=== PATIENT | female | born 1975 | race Caucasian/White ===

== ENCOUNTER 2020-11-10 10:30 | Emergency (ER) | payer OTHER, SELFPAY ==
--- NOTE | 2020-11-10 10:33 | ED.URI ---
HPI - URI/Sore Throat General Chief Complaint: Upper Respiratory Infection Stated Complaint: chest congestion/drainage/sore throat/sinus issues Time Seen by Provider: 11/10/20 10:33 Source: patient and RN notes reviewed History of Present Illness HPI Narrative: Patient is a 44-year-old female who presents the urgent care with complaints of cough, sore throat, postnasal drainage and chest congestion. Patient states that she has been taking DayQuil, NyQuil, Ayanna and Mucinex without much relief. Denies of fever, chills, nausea, vomiting. Denies of any known exposure to Covid. States that her son was recently sick for couple days but her whole household has seasonal allergies . Patient has had her Covid vaccine. No other acute complaints. No acute distress noted. Patient aware of the plan of care. Some parts of this dictation were generated by voice recognition software and may contain typographical and/or grammatical inaccuracies. Related Data Home Medications Medication Instructions Recorded Confirmed fexofenadine-pseudoephedrine 1 tablet PO Q12H PRN 11/10/20 11/10/20 [Ayanna-D 12 Hour] Allergies Allergy/AdvReac Type Severity Reaction Status Date / Time latex Allergy Rash Verified 11/10/20 10:43 Review of Systems Review of Systems: CONSTITUTIONAL: Denies fever, chills, or sweats. EYES: Denies visual changes, redness, or discharge. ENT: Reports of congestion, sore throat and postnasal drainage CARDIOVASCULAR: Denies chest pain, palpitations, or edema. RESPIRATORY: Reports of cough with intermittent dyspnea GASTROINTESTINAL: Denies abdominal pain, nausea, vomiting, or diarrhea. GENITOURINARY: Denies dysuria or hematuria. SKIN: Denies rash or itching. MUSCULOSKELETAL: Denies back pain, joint pain, or myalgia. NEUROLOGIC: Reports of headaches All other systems reviewed are negative, except as documented in HPI. PMFSH Comments At the time of my signature, I reviewed and agree with the nursing past medical, surgical, social, and family history. There is no relevant family history pertinent to the patient complaint. Exam Narrative: GENERAL: This is a well-nourished, well-developed patient, in no apparent distress. HEAD: normocephalic, atraumatic. EYES: PERRL. Sclera clear/white. Vision is grossly intact. EARS: External ears normal, auditory canals clear and without drainage, TMs normal without perforation. Hearing grossly intact. NOSE: External nose normal with no obvious nasal discharge, nares without redness, clear rhinorrhea. THROAT: Mucous membranes moist, moderate erythema noted posterior oropharynx with mild postnasal drainage NECK: Neck supple, non-tender without lymphadenopathy, masses or thyromegaly. CARDIOVASCULAR: Regular rate and rhythm without murmurs, gallops, or rubs. RESPIRATORY: Clear to auscultation. Breath sounds equal bilaterally. No wheezes, rales, or rhonchi. SKIN: warm, intact with no suspicious lesions or rash, good texture and turgor. NEURO: awake, alert, and oriented to person, place and time. There were no obvious focal neurologic abnormalities. EXTREMITIES: No clubbing, cyanosis, or edema. Course Vital Signs Vital signs: Vital Signs Temperature 98.5 F 11/10/20 10:45 Pulse Rate 98 11/10/20 10:45 Respiratory Rate 16 11/10/20 10:45 Blood Pressure 152/91 H 11/10/20 10:45 Pulse Oximetry 98 11/10/20 10:45 Temperature 98.5 F 11/10/20 10:45 Pulse Rate 98 11/10/20 10:45 Respiratory Rate 16 11/10/20 10:45 Blood Pressure 152/91 H 11/10/20 10:45 Pulse Oximetry 98 11/10/20 10:45 Reviewed-patient is informed that they may have pre-hypertension or hypertension based on a blood pressure reading in the department. I recommend the patient call the primary care provider listed on their discharge instructions or a physician of their choice this week to arrange follow-up for further evaluation of possible pre-hypertension or hypertension. MDM - URI/Sore Throat MDM N
[2020-11-10 10:45] VITALS: BP 152/91; PULSE 98; RESP 16; TEMP 36.9; O2SAT 98
[2020-11-12 19:00] LABS: SARS-CoV-2 RNA PCR Negative
== END 2020-11-10 11:02 | disposition home or self-care (01) ==
PROVIDERS: Emergency Provider Nurse Practitioner Family; PCP Registered Nurse
DX: J32.9 Chronic sinusitis, unspecified (principal); Z20.822 Contact with and (suspected) exposure to COVID-19
CPT/HCPCS: 99203; C9803; G0463; U0003; U0005

== ENCOUNTER 2022-01-24 23:33 | Emergency (ER) | payer OTHER, SELFPAY ==
--- NOTE | ~2022-01-24 | XR_ITS ---
EXAMINATION: XR chest 2V 01/25/2022 00:28 INDICATION: Dizziness, cough and shortness of breath PROCEDURE: 2 view chest COMPARISON: No prior studies for comparison. FINDINGS: The lungs are clear. The cardiomediastinal silhouette is within normal limits. There are no pleural effusions. There is no pneumothorax suspected. IMPRESSION: 1: NO ACUTE CARDIOPULMONARY DISEASE. Reviewed, dictated and finalized at location A. [facility]
[2022-01-24 23:38] VITALS: BP 155/106; PULSE 99; RESP 16; TEMP 36.9; O2SAT 99
[2022-01-25 00:25] LABS: Basophils Percent Auto 0.2 % (0.2-1.2); Eosinophils Percent Auto 0.1 % (0-4.4); Hematocrit 40.7 % (37.0-47.0); Hemoglobin 13.6 g/dL (12.0-15.0); Immature Granulocyte Absolute 0.07 K/mm3 (0.00-0.031); Immature Granulocyte Percent A 0.4 % (0-0.5); Lymphocytes Absolute Auto 1.62 K/mm3 (0.9-3.2); Lymphocytes Percent Auto 9.8 % (18.3-44.2); Mean Corpuscular HGB Conc 33.4 g/dl (32-36); Mean Corpuscular Hemoglobin 28.5 pg (26-34); Mean Corpuscular Volume 85.3 fl (80-100); Mean Platelet Volume 9.8 fl (7.4-10.4); Monocytes Absolute Auto 0.6 K/mm3 (0.1-0.6); Monocytes Percent Auto 3.7 % (2.6-8.5); Neutrophils Absolute Auto 14.2 K/mm3 (1.3-6.7); Neutrophils Percent Auto 85.8 % (45.5-73.1); Platelet Count Result 464 k/mm3 (150-375); Red Blood Count 4.77 M/mm3 (4.2-5.4); Red Cell Distribution Width 14.2 % (11.5-14.5); White Blood Count 16.6 K/mm3 (4.5-10.0)
[2022-01-25 00:35] LABS: Alanine Aminotransferase 26 U/L (6-35); Albumin Level 4.7 g/dL (3.5-5.1); Alkaline Phosphatase 64 U/L (38-126); Anion Gap 11 mmol/L (8-16); Aspartate Amino Transferase 29 U/L (14-36); Bilirubin,Total 0.4 mg/dL (0.2-1.3); Blood Urea Nitrogen 22 mg/dL (7-17); Calcium 8.8 mg/dL (8.4-10.2); Carbon Dioxide 23 mmol/L (22-30); Chloride 107 mmol/L (98-107); Estimated CRCL calculation 147 ml/min; Estimated Glomerular Filt Rate > 60; Glucose 157 mg/dL (65-110); INR 1.1; Potassium 4.1 mmol/L (3.4-5.0); Prothrombin Time 13.5 Seconds (11.1-14.7); Sodium 141 mmol/L (137-145)
[2022-01-25 00:36] LABS: Partial Thromboplastin Time 27.7 SECONDS (22.3-36.8)
[2022-01-25 00:45] VITALS: BP 140/92; PULSE 88; RESP 17; O2SAT 98
[2022-01-25] MEDS: methylPREDNISolone SOD SUCC 125 MG VIAL IV PUSH (00:52)
[2022-01-25] MEDS: FAMOTIDINE 20 MG/2 ML VIAL IV PUSH (00:52)
[2022-01-25] MEDS: diphenhydrAMINE HCl INJ 50 MG/ML VIAL 25 MG IV PUSH (00:52)
[2022-01-25 01:04] LABS: Influenza A QL RT-PCR Negative (Negative); Influenza B QL RT-PCR Negative (Negative); SARS-CoV-2 RNA PCR Negative
--- NOTE | 2022-01-25 02:18 | ED.GENADULT ---
HPI - General Adult General Chief complaint: Allergic Reaction Stated complaint: allergic reaction Time Seen by Provider: 01/24/22 23:37 Source: RN notes reviewed History of Present Illness HPI narrative: Patient presents emergency department from home for possible allergic reaction. Patient states approximate 45 minutes prior to arrival she began to feel like her throat was swelling. She states that with that she felt short of breath. She states that she had just drank a smoothie from [employer] she states she was recently started on a Medrol Dosepak as well as an antibiotic for pneumonia. She denies any fevers or chills she denies any chest pain abdominal pain nausea or vomiting. Related Data Home Medications Medication Instructions Recorded Confirmed fexofenadine 60 mg-pseudoephedrine 1 tablet PO Q12H PRN Congestion 11/10/20 11/10/20 ER 120 mg tablet,ext.release,12 hr (Ayanna-D 12 Hour) Allergies Allergy/AdvReac Type Severity Reaction Status Date / Time latex Allergy Rash Verified 01/24/22 23:33 Review of Systems Review of Systems: Gen.: Denies fevers or chills Eyes: Denies eye pain or visual change ENT: Reports congestion and sore throat Respiratory: Reports shortness of breath CV: Denies chest pain or palpitations GI: Denies abdominal pain nausea, emesis or diarrhea Musculoskeletal: Denies back pain or muscle pain Neuro: Denies numbness, tingling, weakness or focal weakness Skin: Denies rash Except as documented, all other systems reviewed and negative FORMERLY [facility], [facility] Past Medical History Medical History (Updated 01/25/22 @ 02:23 by Devyn Hu DO) Patient denies significant medical history Social History Social History (Updated 01/25/22 @ 02:20 by Devyn Hu DO) Smoking status: Never smoker Exam Narrative: APPEARANCE: No acute distress, nontoxic, resting in bed EYES: EOMI HEENT: Normocephalic, atraumatic, nares patent oral mucosa moist erythema exudate posterior pharynx uvula midline no trismus speaking in full sentences with normal voice tolerating own secretions no exudate RESPIRATORY: No respiratory distress Clear to auscultation bilaterally with no rhonchi wheezing or rales. CARDIOVASCULAR: Regular rate and rhythm without murmurs rubs or gallops. ABDOMINAL: Soft, nontender, nondistended, no rebound or guarding MUSCULOSKELETAl: Moves all extremities. No clubbing, cyanosis or edema. NEURO: Awake and alert. Following commands, speech normal, no focal deficits SKIN:: Warm, dry. No rashes lesions or abrasions PSYCHIATRIC: Normal affect/mood, Course Course Emergency Course: Patient states that all symptoms have resolved following medication Discussed with patient results of workup and diagnosis. Discussed need for follow-up with primary care, proper use of medication, and reasons to return to the emergency department. Patient understands and agrees to current treatment plan discussed with patient stopping to take Medrol Dosepak and Augmentin and will give prednisone and Z-Corby Vital Signs Vital signs: Vital Signs Temperature 98.5 F 01/24/22 23:38 Pulse Rate 99 01/24/22 23:38 Respiratory Rate 16 01/24/22 23:38 Blood Pressure 155/106 H 01/24/22 23:38 Pulse Oximetry 99 01/24/22 23:38 Oxygen Delivery Room Air 01/24/22 23:38 Temperature 98.5 F 01/24/22 23:38 Pulse Rate 99 01/24/22 23:38 Respiratory Rate 16 01/24/22 23:38 Blood Pressure 155/106 H 01/24/22 23:38 Pulse Oximetry 99 01/24/22 23:38 Oxygen Delivery Room Air 01/24/22 23:38 Medical Decision Making MDM Narrative Medical decision making narrative: Patient presents for possible allergic reaction states 45 minutes ago began to feel some tightness in her throat. Patient is speaking in full sentences oxygen saturations are normal exam is normal patient had lab work-up and a chest x-ray chest x-ray showed no acute process White count is mildly elevated but the patient is on antibio
[2022-01-25 02:36] VITALS: BP 140/92; PULSE 87; RESP 18; O2SAT 97
== END 2022-01-25 02:30 | disposition home or self-care (01) ==
PROVIDERS: Emergency Provider Emergency Medicine; PCP Registered Nurse
DX: T78.40XA Allergy, unspecified, initial encounter (principal); Z20.822 Contact with and (suspected) exposure to COVID-19; J18.9 Pneumonia, unspecified organism
CPT/HCPCS: 36415; 71046; 80053; 85025; 85380; 85610; 85730; 87636; 96374; 96375; 99284; J1200; J2930